=== PATIENT | female | born 1995 | race Caucasian/White ===

== ENCOUNTER 2022-11-22 10:23 | Outpatient (CLI) | payer BC, SELFPAY ==
--- NOTE | ~2022-11-22 | XR_ITS ---
EXAMINATION: XR scoliosis survey DATE: 11/22/2022 10:58 INDICATION: Scoliosis. TECHNIQUE: Anteroposterior and lateral views of the entire spine standing with breast hopkins were ob tained. COMPARISON: Spine radiographs 09/04/2014 FINDINGS: Left femoral head stands 2 mm higher than the right. There are 12 pairs of ribs. There are 5 nonrib-bearing lumbar segments. There is 45 degrees dextroscoliosis from T7 to T12 by the Galdamez meth od. There is 33 degrees levoscoliosis from T12 to L4. IMPRESSION: 1. Scoliosis. Reviewed, dictated and finalized at location A. IMPRESSION: 1. Scoliosis.
== END 2022-11-22 10:24 | disposition home or self-care (01) ==
PROVIDERS: PCP Family Medicine; Visit Provider Physician Assistant Medical
DX: M41.9 Scoliosis, unspecified (principal)
CPT/HCPCS: 72082